=== PATIENT | female | born 1945 | race Caucasian/White ===

== ENCOUNTER 2018-10-07 09:52 | Outpatient (CLI) | payer MEDICARE, OTHER ==
[~2018-10-07 09:52] MED LIST: AMOX-115 PO
[2018-10-07 10:50] LABS: BASOPHILS % (AUTO) 0.7 % (0-1); EOSINOPHILS # (AUTO) 0.1 X10'3 (0-0.9); EOSINOPHILS % (AUTO) 2.6 % (0-6); HEMATOCRIT 39.7 % (35.0-45.0); HEMOGLOBIN 13.1 g/dl (12.0-16.0); LYMPHOCYTES # (AUTO) 0.9 X10'3 (1.1-4.8); LYMPHOCYTES % (AUTO) 20.7 % (21-51); MEAN CORPUSCULAR HEMOGLOBIN 29.2 PG (27.0-31.0); MEAN CORPUSCULAR HGB CONC 33.1 % (33.0-36.5); MEAN CORPUSCULAR VOLUME 88.2 FL (78-98); MEAN PLATELET VOLUME 8.5 FL (7.4-10.4); MONOCYTES # (AUTO) 0.4 X10'3 (0-0.9); MONOCYTES % (AUTO) 8.4 % (2-12); NEUTROPHILS # (AUTO) 3.1 X10'3 (1.8-7.7); NEUTROPHILS % (AUTO) 67.6 % (42-75); PLATELET COUNT 245 X10'3 (140-440); RED CELL DISTRIBUTION WIDTH 12.9 % (11.5-14.5); WHITE BLOOD COUNT 4.5 X10'3 (4.5-11.0)
[2018-10-07 11:02] LABS: PROTHROMBIN TIME 9.8 SECONDS (9.0-12.0)
[2018-10-07 11:03] LABS: ALANINE AMINOTRANSFERASE 23 U/L (12-78); ALBUMIN 3.3 G/DL (3.4-5.0); ALBUMIN/GLOBULIN RATIO 1.1 (1.1-1.5); ALKALINE PHOSPHATASE 85 IU/L (46-116); ANION GAP 6 (8-16); ASPARTATE AMINO TRANSFERASE 13 U/L (10-37); BILIRUBIN,TOTAL 0.4 MG/DL (0.1-1.0); BLOOD UREA NITROGEN 28 MG/DL (7-18); BUN/CREATININE RATIO 18.9 (6.6-38.0); CALCIUM 8.4 MG/DL (8.5-10.1); CHLORIDE 106 MMOL/L (99-107); CREATININE 1.48 MG/DL (0.40-0.90); GLUCOSE 106 MG/DL (70-104); PARTIAL THROMBOPLASTIN TIME 23 SECONDS (22-32); POTASSIUM 3.9 MMOL/L (3.5-5.1); SODIUM 143 MMOL/L (135-145); TOTAL CARBON DIOXIDE 30.8 MMOL/L (24-32); TOTAL PROTEIN 6.2 G/DL (6.4-8.2); eGFR 35 ML/MIN
== END 2018-10-07 23:59 | disposition home or self-care (01) ==
LOC: LAB 09:52
PROVIDERS: ATTEND Otolaryngology
DX: D69.1 Qualitative platelet defects (principal); I10 Essential (primary) hypertension
CPT/HCPCS: 36415; 80053; 85025; 85576; 85610; 85730

== ENCOUNTER 2019-09-27 11:44 | Emergency (ER) | payer MEDICARE, OTHER ==
[~2019-09-27] VITALS: Ht 152.4 cm; Wt 74.8 kg
[2019-09-27] MEDS ORDERED: ondansetron 4mg rapidly disintigrating tab PO ONE (12:15)
[2019-09-27] MEDS ORDERED: morphine 4 MG/ML inj SYRINge IM ONE (12:15)
[2019-09-27] MEDS ORDERED: HYDR-3965 PO (13:37)
[2019-09-27] MEDS ORDERED: ketorolac trometh. 30mg/ml inj. IV ONE (13:40)
--- NOTE | 2019-09-27 14:03 | NUR ---
DR BARCENAS NOTIFED OF PT EPIGASTRIC PAIN AND ANTERIOR LEFT RIB/CHEST WALL PAIN 10/10 ORDERS FOR JONA TO FOLLOW.
[2019-09-27] MEDS ORDERED: HYDROcodone/acetaminophen 5mg/325mg tablet PO ONE (14:05)
[2019-09-27] MEDS ORDERED: morphine 4 MG/ML inj SYRINge IV ONE (14:35)
[2019-09-27] MEDS ORDERED: ondansetron/PF 4mg/2ml inj IV ONE (14:35)
[2019-09-27 14:46] VITALS: BP 157/74
== END 2019-09-27 15:02 | disposition home or self-care (01) ==
LOC: ER 11:46
DX: S52.501A Unspecified fracture of the lower end of right radius, initial encounter for closed fracture (principal); S22.088A Other fracture of T11-T12 vertebra, initial encounter for closed fracture; S70.01XA Contusion of right hip, initial encounter; Z98.890 Other specified postprocedural states; W01.0XXA Fall on same level from slipping, tripping and stumbling without subsequent striking against object, initial encounter; Y93.41 Activity, dancing; Y92.89 Other specified places as the place of occurrence of the external cause; Y99.9 Unspecified external cause status
CPT/HCPCS: 29125; 71250; 73110; 73502; 74176; 96372; 96374; 96375; 99284; J1885; J2270; J2405

== ENCOUNTER 2019-09-29 10:33 | Emergency (ER) | payer MEDICARE, OTHER ==
[~2019-09-29] VITALS: Ht 152.4 cm; Wt 75.0 kg
[~2019-09-29 10:33] MED LIST changes: +HYDR-3965 PO
[2019-09-29 11:47] VITALS: BP 120/70
== END 2019-09-29 11:51 | disposition home or self-care (01) ==
LOC: ER 10:34
DX: S52.591D Other fractures of lower end of right radius, subsequent encounter for closed fracture with routine healing (principal); S22.088D Other fracture of T11-T12 vertebra, subsequent encounter for fracture with routine healing; Z98.890 Other specified postprocedural states; Z91.09 Other allergy status, other than to drugs and biological substances; Z79.899 Other long term (current) drug therapy; W18.39XD Other fall on same level, subsequent encounter
CPT/HCPCS: 29125; 73090; 99284

== ENCOUNTER 2019-10-10 15:45 | Outpatient (CLI) | payer MEDICARE, OTHER ==
[~2019-10-10 15:45] MED LIST changes: -HYDR-3965 PO
== END 2019-10-10 16:00 | disposition home or self-care (01) ==
LOC: ORTHO 15:45
PROVIDERS: ATTEND Orthopaedic Surgery
DX: S52.591D Other fractures of lower end of right radius, subsequent encounter for closed fracture with routine healing (principal); X58.XXXD Exposure to other specified factors, subsequent encounter
CPT/HCPCS: 73110; G0463

== ENCOUNTER → 2019-10-17 | Outpatient (CLI) | payer MEDICARE, OTHER | END | disposition home or self-care (01) | LOC: ORTHO 15:34 | PROVIDERS: ATTEND Orthopaedic Surgery | DX: S52.501D Unspecified fracture of the lower end of right radius, subsequent encounter for closed fracture with routine healing (principal); X58.XXXD Exposure to other specified factors, subsequent encounter | CPT/HCPCS: 73110 ==

== ENCOUNTER 2019-10-25 09:32 | Outpatient (CLI) | payer MEDICARE, OTHER | END 2019-10-25 10:20 | disposition home or self-care (01) | LOC: ORTHO 09:32 | PROVIDERS: ATTEND Orthopaedic Surgery | DX: S52.591D Other fractures of lower end of right radius, subsequent encounter for closed fracture with routine healing (principal); W01.198D Fall on same level from slipping, tripping and stumbling with subsequent striking against other object, subsequent encounter; Y92.018 Other place in single-family (private) house as the place of occurrence of the external cause; M25.531 Pain in right wrist | CPT/HCPCS: 73110; A4590; G0463 ==

== ENCOUNTER 2019-11-21 15:20 | Outpatient (CLI) | payer MEDICARE, OTHER | END 2019-11-21 15:57 | disposition home or self-care (01) | LOC: ORTHO 15:20 | PROVIDERS: ATTEND Orthopaedic Surgery | DX: S52.571D Other intraarticular fracture of lower end of right radius, subsequent encounter for closed fracture with routine healing (principal); X58.XXXD Exposure to other specified factors, subsequent encounter | CPT/HCPCS: 73110; G0463 ==

== ENCOUNTER 2019-12-21 05:55 | Day surgery (SDC) | payer MEDICARE, OTHER ==
[2019-12-20 14:29] LABS: BASOPHILS % (AUTO) 0.7 % (0-1); EOSINOPHILS # (AUTO) 0.2 X10'3 (0-0.9); EOSINOPHILS % (AUTO) 2.3 % (0-6); HEMATOCRIT 39.5 % (35.0-45.0); LYMPHOCYTES # (AUTO) 1.2 X10'3 (1.1-4.8); LYMPHOCYTES % (AUTO) 18.5 % (21-51); MEAN CORPUSCULAR HEMOGLOBIN 29.2 PG (27.0-31.0); MEAN CORPUSCULAR HGB CONC 32.9 g/dL (33.0-36.5); MEAN CORPUSCULAR VOLUME 88.8 FL (78-98); MEAN PLATELET VOLUME 8.3 FL (7.4-10.4); MONOCYTES # (AUTO) 0.5 X10'3 (0-0.9); NEUTROPHILS # (AUTO) 4.7 X10'3 (1.8-7.7); NEUTROPHILS % (AUTO) 71.5 % (42-75); PLATELET COUNT 267 X10'3 (140-440); RED BLOOD COUNT 4.45 X10'6 (4.20-5.60); RED CELL DISTRIBUTION WIDTH 14.1 % (11.5-14.5); WHITE BLOOD COUNT 6.6 X10'3 (4.5-11.0)
[2019-12-20 14:45] LABS: ALBUMIN 3.4 G/DL (3.4-5.0); ANION GAP 7 (8-16); BLOOD UREA NITROGEN 27 MG/DL (7-18); BUN/CREATININE RATIO 19.6 (6.6-38.0); CALCIUM 9.1 MG/DL (8.5-10.1); CHLORIDE 105 MMOL/L (99-107); CREATININE 1.38 MG/DL (0.40-0.90); GLUCOSE 94 MG/DL (70-104); PARTIAL THROMBOPLASTIN TIME 23 SECONDS (22-32); POTASSIUM 4.1 MMOL/L (3.5-5.1); SODIUM 142 MMOL/L (135-145); TOTAL CARBON DIOXIDE 30.2 MMOL/L (24-32); eGFR 38 ML/MIN
[~2019-12-21] VITALS: Ht 152.4 cm; Wt 72.3 kg
[2019-12-21] VITALS (10 sets, daily range): BP systolic 141–174; BP diastolic 64–94
[2019-12-21] MEDS ORDERED: cefazolin/dext.iso 2gm/50ml 50 ML IV ONE (06:25)
[2019-12-21] MEDS ORDERED: SOTA80TA73 PO (07:29)
[2019-12-21] MEDS ORDERED: NYST1POW5 TOP (07:30)
[2019-12-21] MEDS ORDERED: cefazolin/dext.iso 2gm/100ml 100 ML IV ONE (07:35)
[2019-12-21] MEDS ORDERED: CELE200C PO (07:39)
[2019-12-21] MEDS ORDERED: HYDR12.55 PO (07:40)
[2019-12-21] MEDS ORDERED: LORA-660 PO (07:42)
[2019-12-21] MEDS ORDERED: fentaNYL/PF 50MCG/1 ML 2ML syringe ONE (07:43)
[2019-12-21] MEDS ORDERED: ESOM40CA17 PO (07:43)
[2019-12-21] MEDS ORDERED: LIDOcaine 1% W/epiNEPHrine 1:100,000 20ml vial ONE (07:43)
[2019-12-21] MEDS ORDERED: ceFAZolin 1000mg inj ONE (07:43)
[2019-12-21] MEDS ORDERED: midazolam 2 mg/2 ml injection ONE ×2 (07:43→08:28)
[2019-12-21] MEDS ORDERED: ALBU8.5H8 INH (07:44)
[2019-12-21] MEDS ORDERED: SIMV40TA PO (07:45)
[2019-12-21] MEDS ORDERED: MONT10TA21 PO (07:46)
[2019-12-21] MEDS ORDERED: HYDR-3568 PO (07:47)
[2019-12-21] MEDS ORDERED: APIX5TAB3 PO (07:48)
[2019-12-21] MEDS ORDERED: HYDROcodone/acetaminophen 5mg/325mg tablet PO PRN (09:55)
[2019-12-21] MEDS ORDERED: HYDROcodone/acetaminophen 10/325mg tab PO PRN (09:55)
[2019-12-21] MEDS ORDERED: normal saline 1000ml 1,000 ML IV ONE (10:00)
[2019-12-21] MEDS ORDERED: vancomycin/NS 1 GM ADD-VANTAGE 250 ML X 1 DOSE IV ONE (11:30)
[2019-12-21] MEDS ORDERED: sod chloride 0.9% 10ml flush syringe IV SCH (16:00)
== END 2019-12-21 14:15 | disposition home or self-care (01) ==
LOC: SSTAY O 05:55
PROVIDERS: ATTEND Internal Medicine Cardiovascular Disease
DX: I49.5 Sick sinus syndrome (principal); I12.9 Hypertensive chronic kidney disease with stage 1 through stage 4 chronic kidney disease, or unspecified chronic kidney disease; N18.3 Chronic kidney disease, stage 3 (moderate); E78.5 Hyperlipidemia, unspecified; K21.9 Gastro-esophageal reflux disease without esophagitis; E03.9 Hypothyroidism, unspecified; I48.0 Paroxysmal atrial fibrillation; Z90.710 Acquired absence of both cervix and uterus; Z98.890 Other specified postprocedural states; Z82.49 Family history of ischemic heart disease and other diseases of the circulatory system; Z79.899 Other long term (current) drug therapy; Z88.0 Allergy status to penicillin
CPT/HCPCS: 33208; 36415; 71046; 80048; 85025; 85610; 85730; 93005; 99152; 99153; C1785; C1894; C1898; J0690; J2250; J3010; J3370; J7030; A4565; A4620; A6449

== ENCOUNTER 2020-05-26 16:58 | Emergency (ER) | payer MEDICARE, OTHER ==
[~2020-05-26] VITALS: Ht 152.4 cm; Wt 75.0 kg
[~2020-05-26 16:58] MED LIST changes: +ALBU8.5H8 INH; -AMOX-115 PO; +APIX5TAB3 PO; +CELE200C PO; +ESOM40CA17 PO; +HYDR-3568 PO; +HYDR12.55 PO; +LORA-660 PO; +MONT10TA21 PO; +NYST1POW5 TOP; +SIMV40TA PO; +SOTA80TA73 PO
[2020-05-26 17:01] VITALS: BP 148/85
[2020-05-26] MEDS ORDERED: CEPH250T PO (17:34)
== END 2020-05-26 17:41 | disposition home or self-care (01) ==
LOC: ER 16:59
DX: L03.119 Cellulitis of unspecified part of limb (principal); Z72.89 Other problems related to lifestyle; Z88.8 Allergy status to other drugs, medicaments and biological substances; Z79.01 Long term (current) use of anticoagulants; Z79.899 Other long term (current) drug therapy
CPT/HCPCS: 99283

== ENCOUNTER 2021-02-18 06:14 | Day surgery (SDC) | payer MEDICARE, OTHER ==
[2021-02-11 16:56] LABS: BASOPHILS # (AUTO) 0.1 X10'3 (0-0.2); BASOPHILS % (AUTO) 1.4 % (0-1); EOSINOPHILS # (AUTO) 0.2 X10'3 (0-0.9); EOSINOPHILS % (AUTO) 3.7 % (0-6); LYMPHOCYTES # (AUTO) 1.3 X10'3 (1.1-4.8); LYMPHOCYTES % (AUTO) 22.6 % (21-51); MEAN CORPUSCULAR HEMOGLOBIN 30.1 PG (27.0-31.0); MEAN CORPUSCULAR HGB CONC 32.9 g/dL (33.0-36.5); MEAN CORPUSCULAR VOLUME 91.6 FL (78-98); MEAN PLATELET VOLUME 8.6 FL (7.4-10.4); MONOCYTES # (AUTO) 0.6 X10'3 (0-0.9); MONOCYTES % (AUTO) 10.3 % (2-12); NEUTROPHILS # (AUTO) 3.5 X10'3 (1.8-7.7); PRE OP HEMATOCRIT 37.3 % (35.0-45.0); PRE OP HEMOGLOBIN 12.2 g/dL (12.0-16.0); PRE OP PLATELET COUNT 219 X10'3 (140-440); RED BLOOD COUNT 4.07 X10'6 (4.20-5.60); RED CELL DISTRIBUTION WIDTH 13.6 % (11.5-14.5)
[2021-02-11 17:07] LABS: PRE OP INR 1.1 INR; PRE OP PROTIME 10.9 SECONDS (9.0-12.0)
[2021-02-11 17:10] LABS: ALBUMIN 3.3 G/DL (3.4-5.0); ALBUMIN/GLOBULIN RATIO 1.2 (1.1-1.5); ALKALINE PHOSPHATASE 89 IU/L (46-116); BLOOD UREA NITROGEN 27 MG/DL (7-18); BUN/CREATININE RATIO 23.3 (6.6-38.0); CALCIUM 8.6 MG/DL (8.5-10.1); CHLORIDE 105 MMOL/L (99-107); CREATININE 1.16 MG/DL (0.40-0.90); PRE OP ALT 21 U/L (30-65); PRE OP ANION GAP 7 (8-16); PRE OP AST 17 U/L (10-37); PRE OP BILIRUB, TOTAL 0.4 MG/DL (0.0-1.0); PRE OP GLUCOSE 95 MG/DL (70-104); PRE OP SODIUM 144 MMOL/L (135-145); TOTAL PROTEIN 6.1 G/DL (6.4-8.2); eGFR 46 ML/MIN
[2021-02-18] VITALS (7 sets, daily range): BP systolic 123–144; BP diastolic 69–83
[~2021-02-18] VITALS: Ht 152.4 cm; Wt 73.4 kg
[~2021-02-18 06:14] MED LIST changes: +ATOR40TA72 PO; -CELE200C PO; +DOCUMENT DATE & TIME OF BETA-BLOCKER PO ONE; +GLUCOSAMINE; -HYDR-3568 PO; +HYDR-3964 PO; +LORA-657 PO; -LORA-660 PO; +MAGN400C PO; +MOME17SP BOTHNARES; -NYST1POW5 TOP; -SIMV40TA PO; +famotidine 20mg tablet PO ONE; +oxymetazoline 15 ML nasal spray NS PRN; +ringers solution, lacted 1,000 ML IV SCH
[2021-02-18] MEDS ORDERED: LIDOcaine 1% W/epiNEPHrine 1:100,000 20ml vial ONE (06:36)
[2021-02-18] MEDS ORDERED: cocaine 4% topical solution 4ml bottle ONE (06:36)
[2021-02-18] MEDS ORDERED: mupirocin 2% ointment 22GM ONE (06:36)
[2021-02-18] MEDS ORDERED: oxymetazoline 15 ML nasal spray NS ONE (06:37)
[2021-02-18] MEDS ORDERED: cefTAZidime 1gm inj ONE (06:37)
[2021-02-18] MEDS ORDERED: fentaNYL/PF 50MCG/1 ML 2ML syringe ONE (08:14)
[2021-02-18] MEDS ORDERED: propofol inj 20 ML IV ONE (08:14)
[2021-02-18] MEDS ORDERED: midazolam 1 mg/ML 2ml injection ONE (08:14)
[2021-02-18] MEDS ORDERED: morphine 2 MG/ML inj. syringe IV PRN (08:20)
[2021-02-18] MEDS ORDERED: ondansetron/PF 4mg/2ml inj IV PRN (08:20)
[2021-02-18] MEDS ORDERED: proCHLORperazine 10 MG/2 ml inj IV PRN (08:20)
[2021-02-18] MEDS ORDERED: meperidine/PF 25mg/ml syringe IV PRN ×3 (08:20)
[2021-02-18] MEDS ORDERED: ringers solution, lacted 1,000 ML IV SCH (08:20)
[2021-02-18] MEDS ORDERED: morphine 4 MG/ML inj SYRINge IV PRN (08:20)
[2021-02-18] MEDS ORDERED: dexamethasone sod phosphate 4mg/ml inj. ONE (09:27)
[2021-02-18] MEDS ORDERED: ondansetron/PF 4mg/2ml inj ONE (09:27)
--- NOTE | 2021-02-18 09:41 | NUR ---
PReceived from OR via , accompanied by Anesthesiologist DR THOMASON and report given by Anesthesiolgist. AWAKENS TO VOICE. VITALS STABLE. DRESSINGS DI. LANA PAIN.
[2021-02-18] MEDS ORDERED: salt irrigation nasal spray 45 ML SPRAY NS PRN (09:59)
--- NOTE | 2021-02-18 10:51 | NUR ---
AWAKE AND ORIENTED. VITALS STABLE. DRESSING DI. LANA PAIN. HOME WITH HER DAUGHTER AT THIS TIME.
== END 2021-02-18 10:51 | disposition home or self-care (01) ==
LOC: PAS 06:14
PROVIDERS: ATTEND Otolaryngology
DX: J32.8 Other chronic sinusitis (principal); J33.8 Other polyp of sinus; I10 Essential (primary) hypertension; K21.9 Gastro-esophageal reflux disease without esophagitis; M19.90 Unspecified osteoarthritis, unspecified site; Z88.8 Allergy status to other drugs, medicaments and biological substances; Z79.01 Long term (current) use of anticoagulants; Z79.899 Other long term (current) drug therapy; Z90.710 Acquired absence of both cervix and uterus; Z90.49 Acquired absence of other specified parts of digestive tract; Z98.890 Other specified postprocedural states; Z95.0 Presence of cardiac pacemaker
CPT/HCPCS: 31253; 31267; 36415; 61782; 80053; 82948; 85025; 85576; 85610; 85730; 93005; A6402; C9250; J0713; J1100; J2175; J2250; J2405; J2704; J3010; J7040; J7120; A4618; A7000

== ENCOUNTER 2024-06-18 18:20 | Emergency (ER) | payer MEDICARE, OTHER ==
[~2024-06-18] VITALS: Ht 149.9 cm; Wt 65.9 kg
[~2024-06-18 18:20] MED LIST changes: +ALBU8.5H17 INH; -ALBU8.5H8 INH; -DOCUMENT DATE & TIME OF BETA-BLOCKER PO ONE; -MOME17SP BOTHNARES; +MOME17SP5 BOTHNARES; +MONT-47 PO; -MONT10TA21 PO; -famotidine 20mg tablet PO ONE; -oxymetazoline 15 ML nasal spray NS PRN; -ringers solution, lacted 1,000 ML IV SCH
[2024-06-18] MEDS: HYDROcodone/acetaminophen 5mg/325mg tablet PO ONE (19:48)
[2024-06-18] MEDS ORDERED: HYDR-3965 PO (20:00)
[2024-06-18 20:30] VITALS: BP 140/85; PULSE 79; RESP 16; TEMP 98.8; O2SAT 97
== END 2024-06-18 20:41 | disposition home or self-care (01) ==
LOC: ER 18:20
DX: S42.212A Unspecified displaced fracture of surgical neck of left humerus, initial encounter for closed fracture (principal); Z91.09 Other allergy status, other than to drugs and biological substances; Z79.899 Other long term (current) drug therapy; W01.0XXA Fall on same level from slipping, tripping and stumbling without subsequent striking against object, initial encounter; Y93.89 Activity, other specified; Y92.89 Other specified places as the place of occurrence of the external cause; Y99.8 Other external cause status
CPT/HCPCS: 73060; 73130; 99284; A4565